=== PATIENT | female | born 1960 | race Caucasian/White ===

== ENCOUNTER → 2018-07-14 | Outpatient (CLI) | payer MEDICARE, MEDICAID | LOC: M LRY 17:15 | DX: J44.1 Chronic obstructive pulmonary disease with (acute) exacerbation (principal) | CPT/HCPCS: 71046; 87804 ==

== ENCOUNTER 2018-11-28 12:36 | Inpatient (IN) | payer MEDICARE, MEDICAID ==
[~2018-11-28] VITALS: Ht 170.2 cm; Wt 65.7 kg
[2018-11-28] MEDS ORDERED: BISO5TAB5 PO ×2 (12:47→16:23)
[2018-11-28] MEDS ORDERED: ATOR40TA75 PO (12:47)
[2018-11-28] MEDS ORDERED: ELIQ5TAB PO (12:47)
[2018-11-28] MEDS ORDERED: VENTAER INH (12:47)
[2018-11-28] MEDS ORDERED: VITA-122 PO (12:47)
[2018-11-28] MEDS ORDERED: VENLAFAXINE PO (12:47)
[2018-11-28] MEDS ORDERED: PRED10TA2 PO (12:47)
[2018-11-28] MEDS ORDERED: METOPROLOL 5 MG/5 ML VIAL IV STA (13:36)
[2018-11-28 14:00] LABS: HEMATOCRIT 48.7 % (36.0-47.0); HEMOGLOBIN 16.2 g/dl (12.0-15.5); MEAN CORPUSCULAR HEMOGLOBIN 30.2 pg (27.0-33.0); MEAN CORPUSCULAR HGB CONC 33.3 g/dl (32.0-36.5); MEAN CORPUSCULAR VOLUME 90.9 fl (80.0-96.0); PLATELET COUNT, AUTOMATED 185 10^3/uL (150-450); RED BLOOD COUNT 5.36 10^6/uL (4.00-5.40); WHITE BLOOD COUNT 6.5 10^3/uL (4.0-10.0)
--- NOTE | 2018-11-28 14:41 | REP ---
AP PORTABLE CHEST: 11/28/2018. Comparison: PA and lateral chest 07/14/2018. Clinical history: Dyspnea. Findings: Frontal view shows the lungs well inflated. There is some basilar fibrotic change and some scarring at the right CP angle as on the previous study. There is no dense consolidation or gross effusion. No parenchymal mass or pulmonary nodule. Curvilinear scarring right midlung zone unchanged. The heart, mediastinal and hilar contours are unchanged. There is pulmonary artery hypertension, consistent with COPD. There is no vascular redistribution or pulmonary edema. The aorta and airway were intact. Bones intact. No free air under the diaphragm. Impression: 1. COPD with some basilar fibrotic changes and some scarring at the right CP angle on this frontal view. No cardiomegaly, edema, effusion, definite infiltrate or parenchymal mass. 2. Pulmonary artery hypertension. 3. Minor degenerative changes in the spine and shoulders. Electronically Signed by Lalo Powell MD 11/28/2018 06:00 P
[2018-11-28] MEDS ORDERED: DIGOXIN INJ 0.5 MG/2 ML AMP (J1160) IV ONE (14:45)
[2018-11-28 14:53] LABS: BLOOD UREA NITROGEN 22 MG/DL (7-18); CALCIUM LEVEL 8.6 MG/DL (8.5-10.1); CARBON DIOXIDE LEVEL 26 MEQ/L (21-32); CHLORIDE LEVEL 101 MEQ/L (98-107); CPK CREATINE PHOSPHOKINASE 141 U/L (26-192); CREATININE FOR GFR 0.89 MG/DL (0.55-1.30); GLOMERULAR FILTRATION RATE > 60.0 (>51); GLUCOSE, FASTING 102 MG/DL (70-100); MB/CK RELATIVE INDEX 1.56 (< OR =4); NT-PRO BNP 435 PG/ML (<125); POTASSIUM SERUM 4.3 MEQ/L (3.5-5.1); SODIUM LEVEL 135 MEQ/L (136-145); THYROID STIMULATING HORMONE 0.868 uIU/ML (0.358-3.740); TROPONIN I < 0.02 NG/ML (< 0.10)
[2018-11-28] MEDS ORDERED: VENL75CA2 PO (16:24)
[2018-11-28] MEDS ORDERED: METOPROLOL 5 MG/5 ML VIAL IV ONE (17:15)
[2018-11-28] MEDS ORDERED: ALBUTEROL 90 MCG/ACT 8GM HFA INHALER INH PRN (18:30)
[2018-11-28 18:44] LABS: PHOSPHORUS LEVEL 3.7 MG/DL (2.5-4.9)
[2018-11-28] MEDS ORDERED: PILL CRUSHER/CUTTER 1 EACH XX PRN (18:45)
--- NOTE | 2018-11-28 18:58 | HPEPDOC ---
General Date of Admission Nov 28, 2018 at 17:53 Other Providers Cardio: Dr. Velasquez in [place] Pulm: Dr. Hadley PCP: Dr. Patel Attending Physician: ROGELIO HURTADO MD Chief Complaint The patient is a 57-year-old female admitted with a reason for visit of Atrial Flutter W/Rvr; Influenza A. History of Present Illness 57-year-old female with history of chronic A. fib and A. flutter presents to the ER after she was seen earlier at urgent care for worsening shortness of breath over the past few days "I feel suffocated". She she has felt fatigue, dry cough, muscle aches, decreased appetite for the past 2-3 days. Positive sick contact with her daughter's son who is positive for flu. Per the patient, she herself tested positive for influenza A at the urgent care, and also found to be in RVR then, with heart rate sustained in the 120s, and recommended to check herself in due to her HR. She denies any phlegm production, no fevers or chills, and states that she is unable to feel palpitations even in the past when she has had rapid heart rate. No dizziness or lightheadedness or cp. She denies any other complaints today. In the ER, she received 1 dose of Lopressor and a loading dose of Digoxin and was thereafter admitted, with HR now in 110s. Home Medications Scheduled Apixaban Base (Eliquis) 5 Mg Tab, 5 MG PO BID, (Reported) Atorvastatin Calcium (Atorvastatin Calcium) 40 Mg Tab, 40 MG PO QHS, (Reported) Bisoprolol Fumarate (Bisoprolol Fumarate) 5 Mg Tab, 5 MG PO QAM, (Reported) Bisoprolol Fumarate (Bisoprolol Fumarate) 5 Mg Tab, 7.5 MG PO QPM, (Reported) Cholecalciferol (Vitamin D3) 1,000 Unit Tab, 1,000 UNITS PO DAILY, (Reported) Prednisone (Prednisone) 10 Mg Tab, 10 MG PO TAPER, (Reported) PATIENT STATES SHE STARTED 1 TAB DAILY FOR 4 DAYS TODAY (11/28/2018) Venlafaxine HCl (Venlafaxine HCl ER) 75 Mg Cap, 225 MG PO DAILY, (Reported) Scheduled PRN Albuterol Sulfate (Ventolin Hfa) 108 Mcg/Act Aer, 1 PUFF INH Q4H PRN for SHORTNESS OF BREATH, (Reported) Allergies Coded Allergies: Penicillins (Verified Allergy, Intermediate, hives, 11/28/18) Past Medical History Medical History Chronic Afib/Flutter, chronically on Eliquis COPD-emphysema Stroke August 2017 Depression Tobacco use Social History Active longtime smoker Review of Systems Other systems Constitutional: Denies fever, chills, night sweats Eyes: Denies eye pain, vision change ENT: Denies headaches, ear pain, dysphagia .Admits rhinorrhea Skin: Denies any rashes or lesions Pulmonary: Admits increasing dyspnea, dry cough, increased wheezing and chest tightness with coughing Cardiac: Denies chest pain, palpitations, orthopnea, PND, edema, lightheadedness GI: Denies nausea, vomiting, abdominal pain, changes in stools Endocrine: Denies heat or cold intolerance MSK: Admits diffuse muscle aches Neurologic: Denies numbness/tingling Physical Examination Other physical findings General exam: Alert and cooperative, A&O 3, NAD Eye exam: PERRLA, EOMI ENT: NCAT, mucous membranes moist, no pharyngeal edema or exudates. Positive postnasal drip Neck: Supple, no adenopathy Cardiac: irregular rate and rhythm, is in Aflutter with HR 110s-120s on monitor Respiratory: diffuse expiratory wheezes and rhonchi. No rales. Equal chest rise b/l Abdomen: normoactive bowel sounds, soft, nontender, nondistended Extremity: 2+ radial and dorsalis pedis pulses, no edema or tenderness Skin: [place], warm, dry, no visible rash or lesions Vital Signs Vital Signs Date Time Temp Pulse Resp B/P (MAP) Pulse Ox O2 Delivery O2 Flow Rate FiO2 11/28/18 18:15 105 20 112/87 (95) 91 Room Air 11/28/18 12:52 97.3 Laboratory Data Labs 24H Laboratory Tests 2 11/28/18 13:41: Nucleated Red Blood Cells % (auto) 0.0, Anion Gap 8, Glomerular Filtration Rate > 60.0, Blood Urea Nitrogen 22H, Creatinine 0.89, Sodium Level 135L, Potassium Level 4.3, Chloride Level 101, Carbon Dioxide Level 26, Calcium Level 8.6, Total Creatine Kinase 141, Creatine Kinase MB 2.0, Creatine Kinase MB Relative Index 1.56, Troponin I < 0.02, LN-Ddt-F-Type Natriuretic Peptide 435H, Thyroid Stimulating Hormone (TSH) 0.868 CBC/BMP Laboratory Tests 11/28/18 13:41 Red Blood Count 5.36, Mean Corpuscular Volume 90.9, Mean Corpuscular Hemoglobin 30.2, Mean Corpuscular Hemoglobin Concent 33.3, Red Cell Distribution Width 13.3, Calcium Level 8.6, Total Creatine Kinase 141 Assessment/Plan A flutter with RVR likely 2/2 acute infection. Patient is asymptomatic. S/P Lopressor and digoxin loading dose in the ER. Currently heart rate is in 110s. If it continues to be elevated, continue with digoxin and limit BBlocker given her borderline soft BP. Continue home regular Zebeta, 5mg qam and 7.5mg qpm once tolerable. Home regimen may need adjustment. Patient is chronically anticoagulated on Eliquis. Influenza A Tested positive in urgent care earlier today prior to admission. Positive sick contact with the child also positive for flu. Start on Tamiflu. Consider starting DuoNeb treatments once her heart rate is better controlled. COPD-emphysema Continue home inhalers. This does not appear to be a COPD exacerbation as she has wheezes at baseline and is not hypoxic currently. If she does not improve over time, consider starting steroids. Of note, she was recently started on prednisone taper earlier today, and has only taken [address] this on hold currently and treat her active influenza infection. Hx of CVA August 2017. Stable, continue Lipitor Depression Stable. Continue home venlafaxine Active tobacco use Patient counseled on tobacco cessation. Will start on nicotine patch DVT PPX: Chronically on Eliquis Distal: Will admit to the hospital service, closely monitor on telemetry. Plan / VTE VTE Prophylaxis Ordered?: Yes GME ATTESTATION GME ATTESTATION My faculty preceptor for this patient encounter was physically present during the encounter and was fully available. All aspects of the patient interview, examination, medical decision making process, and medical care plan development were reviewed and approved by the faculty preceptor. The faculty preceptor is aware and concurs with the plan as stated in the body of this note and will attest to such by his/her cosignature. ELICEO GONZALES DO Nov 28, 2018 18:58
[2018-11-28] MEDS ORDERED: NICOTINE 21MG/24HR 1 EA TRANSDERMAL TD ONE (19:00)
[2018-11-28] MEDS: ATORVASTATIN 20 MG TAB PO SCH (20:25)
[2018-11-28] MEDS: OSELTAMIVIR PHOSPHATE 75 MG CAP (TAMIFLU) PO SCH (20:25)
[2018-11-28] MEDS: BISOPROLOL FUMARATE 5 MG TAB PO SCH (20:25)
[2018-11-28] MEDS: APIXABAN 5 MG TAB (ELIQUIS) PO SCH (20:25)
--- NOTE | 2018-11-28 21:01 | ECGEPIP ---
Stationary ECG Study [facility] - ED Test Date: 2018-11-28 Pat Name: CRIS MORSE Department: Room: - Gender: F Customer Services Manager: dai : [id number] Requested By: NAN Ramos PA-C Order Number: [id number] Reading MD: Kayla Conley Measurements Intervals [place] Rate: 112 P: [place]: 0 QRS: -12 QRSD: 78 T: -34 QT: 321 QTc: 440 Interpretive Statements ATRIAL FIBRILLATION WITH RAPID VENTRICULAR RESPONSE POSSIBLE RIGHT VENTRICULAR CONDUCTION DELAY NONSPECIFIC T-WAVE ABNORMALITY ABNORMAL RHYTHM ECG NO PRIOR FOR COMPARISON Electronically Signed On 11-28-2018 21:01:16 EST by Kayla Conley
[2018-11-28 23:59] VITALS: BP 123/87
[2018-11-29 01:10] VITALS: BP 123/87
[2018-11-29 04:00] VITALS: BP 123/82
[2018-11-29 05:46] LABS: HEMATOCRIT 51.5 % (36.0-47.0); HEMOGLOBIN 16.6 g/dl (12.0-15.5); MEAN CORPUSCULAR HGB CONC 32.2 g/dl (32.0-36.5); PLATELET COUNT, AUTOMATED 198 10^3/uL (150-450); RED BLOOD COUNT 5.54 10^6/uL (4.00-5.40)
[2018-11-29 05:58] LABS: BLOOD UREA NITROGEN 20 MG/DL (7-18); CALCIUM LEVEL 8.3 MG/DL (8.5-10.1); CARBON DIOXIDE LEVEL 31 MEQ/L (21-32); CHLORIDE LEVEL 100 MEQ/L (98-107); GLOMERULAR FILTRATION RATE > 60.0 (>51); GLUCOSE, FASTING 82 MG/DL (70-100); MAGNESIUM LEVEL 2.1 MG/DL (1.8-2.4); SODIUM LEVEL 135 MEQ/L (136-145)
[2018-11-29 08:00] VITALS: BP 119/17
[2018-11-29] MEDS: VENLAFAXINE **XR** 75MG CAPSULE PO SCH (10:03)
[2018-11-29] MEDS: VITAMIN D 1,000 INTERNATIONAL UNITS TABLET PO SCH (10:03)
[2018-11-29] MEDS: OSELTAMIVIR PHOSPHATE 75 MG CAP (TAMIFLU) PO SCH ×2 (10:04→22:05)
[2018-11-29] MEDS: APIXABAN 5 MG TAB (ELIQUIS) PO SCH ×2 (10:04→22:05)
[2018-11-29] MEDS: BISOPROLOL FUMARATE 5 MG TAB PO SCH ×2 (10:05→22:04)
[2018-11-29 12:00] VITALS: BP 129/91
[2018-11-29] MEDS: IPRATROPIUM 0.5MG/ALBUTEROL 2.5MG INH SOL UD 3ML (DUONEB)(J7620) NEB SCH ×4 (13:50→23:47)
--- NOTE | 2018-11-29 14:28 | IPN ---
DATE: 11/29/2018 SUBJECTIVE: The patient tells me that she is breathing easier today. She still has a cough. She tells me that she is not feeling as weak, but does feel weak from her baseline. She denies fevers or chills. OBJECTIVE: VITAL SIGNS: Temperature 98.5, maximum temperature (t-max) 99.4, pulse 85, respiratory rate 18, blood pressure 119/70, oxygen saturation 95% on 2 liters nasal cannula. GENERAL: She is a middle aged female sitting up in bed. She does not appear to be in any acute distress. She is speaking in complete sentences. Awake, alert, oriented times three. No use of accessory muscles. No elevation in jugular venous pressure. CARDIOVASCULAR: S1, S2 irregularly irregular but not tachycardic. RESPIRATORY: She has a prolonged expiratory phase with some mild diffuse expiratory wheeze. ABDOMINAL EXAM: Benign. EXTREMITIES: No clubbing, cyanosis or edema. LABORATORY STUDIES: WBC 5.0, hemoglobin 16.6, platelet count 198. Chemistry panel shows sodium 135, potassium 4.0, chloride 100, bicarbonate 31, BUN 20, creatinine 1.0. TSH within normal limits. IMAGING: The patient did have a chest x-ray that revealed pulmonary artery hypertension, chronic obstructive pulmonary disease (COPD) with some basilar fibrotic changes and some scarring at the right costophrenic angle. Mild degenerative changes in the spine and shoulders. ASSESSMENT AND PLAN: This is a 57-year-old female with hypoxic respiratory failure secondary to influenza A. 1. Influenza A. The patient has been started on Tamiflu. She has received at this time two doses. She is improving. She does have some polycythemia, which I suspect she has chronic hypoxic respiratory failure and we are discovering it during this visit. I suspect that she will need to be sent with home oxygen. I will check an ambulating oxygen saturation and see how she progresses over the next 24 to 48 hours. My suspicion is that she will be discharged home with oxygen. For the time being, I will continue supportive measures. I will start her on DuoNebs and consider beginning Spiriva. I feel she has a long-standing COPD related to active tobacco use. 2. COPD/emphysema. As outlined above, I think that she is improving at this time and as such I will hold off on any IV steroids. If she fails to improve, this could certainly be considered. It does not appear as though she is on significant medication at home, but given her elevated hemoglobin and hematocrit and imaging findings and tobacco history, I suspect this will benefit from further medication and spirometry with outpatient home referral. 3. History of CVA, stable. She is continued on Lipitor, as well as Eliquis. 4. Atrial fibrillation. She did present with rapid ventricular response likely secondary to her shortness of breath. It does appear to have responded well to measures to improve her breathing status. She is on her home Zebeta, rate controlling agents and her anticoagulation with Eliquis. 5. Mood disorder. Continue with Effexor. 6. Tobacco abuse. Cessation counseling provided. She is not very receptive to it at this time. DISPOSITION: Possibly home within the next 24 to 48 hours pending her respiratory status.
[2018-11-29 16:00] VITALS: BP 122/70
[2018-11-29 20:00] VITALS: BP 102/76
[2018-11-29] MEDS: ATORVASTATIN 20 MG TAB PO SCH (22:05)
[2018-11-30] VITALS: BP 104/74
[2018-11-30 04:00] VITALS: BP 107/73
[2018-11-30 05:10] LABS: HEMATOCRIT 47.8 % (36.0-47.0); HEMOGLOBIN 15.6 g/dl (12.0-15.5); MEAN CORPUSCULAR HEMOGLOBIN 29.6 pg (27.0-33.0); MEAN CORPUSCULAR HGB CONC 32.6 g/dl (32.0-36.5); MEAN CORPUSCULAR VOLUME 90.7 fl (80.0-96.0); PLATELET COUNT, AUTOMATED 162 10^3/uL (150-450); RED BLOOD COUNT 5.27 10^6/uL (4.00-5.40); WHITE BLOOD COUNT 3.7 10^3/uL (4.0-10.0)
[2018-11-30 05:35] LABS: BLOOD UREA NITROGEN 21 MG/DL (7-18); CALCIUM LEVEL 8.1 MG/DL (8.5-10.1); CARBON DIOXIDE LEVEL 29 MEQ/L (21-32); CHLORIDE LEVEL 103 MEQ/L (98-107); CREATININE FOR GFR 0.78 MG/DL (0.55-1.30); GLOMERULAR FILTRATION RATE > 60.0 (>51); GLUCOSE, FASTING 86 MG/DL (70-100); MAGNESIUM LEVEL 2.1 MG/DL (1.8-2.4); SODIUM LEVEL 137 MEQ/L (136-145)
[2018-11-30] MEDS: IPRATROPIUM 0.5MG/ALBUTEROL 2.5MG INH SOL UD 3ML (DUONEB)(J7620) NEB SCH (06:03)
[2018-11-30 08:00] VITALS: BP 121/82
[2018-11-30] MEDS: VITAMIN D 1,000 INTERNATIONAL UNITS TABLET PO SCH (09:19)
[2018-11-30] MEDS: APIXABAN 5 MG TAB (ELIQUIS) PO SCH (09:19)
[2018-11-30] MEDS: OSELTAMIVIR PHOSPHATE 75 MG CAP (TAMIFLU) PO SCH (09:19)
[2018-11-30] MEDS: VENLAFAXINE **XR** 75MG CAPSULE PO SCH (09:19)
[2018-11-30 09:20] VITALS: BP 121/82
[2018-11-30] MEDS: BISOPROLOL FUMARATE 5 MG TAB PO SCH (09:20)
[2018-11-30] MEDS ORDERED: SLF 3 ML SYR IV PRN (10:45)
[2018-11-30] MEDS ORDERED: SPIR1CAP INH (11:08)
[2018-11-30] MEDS ORDERED: BREO1INH PO (11:08)
[2018-11-30] MEDS ORDERED: OSEL75CA2 PO (11:08)
[2018-11-30] MEDS ORDERED: SLF 3 ML SYR IV SCH (14:00)
--- NOTE | 2018-11-30 17:56 | DSES ---
DATE OF ADMISSION: 11/28/2018 DATE OF DISCHARGE: 11/30/2018 DISCHARGE DIAGNOSIS: Influenza A. SECONDARY DIAGNOSES: 1. Chronic obstructive pulmonary disease. 2. Emphysema. 3. History of a cerebrovascular accident. 4. Atrial fibrillation. 5. Mood disorder. 6. Tobacco abuse. HOSPITAL COURSE: The patient is a 57-year-old female who presented with hypoxic respiratory failure, shortness of breath, as well as atrial fibrillation with rapid ventricular response. She was found to have influenza A. She was started on Tamiflu. She was on nebulizer treatments as well. She did improve rather quickly, to the point that she no longer required any oxygen. She was up ambulating independently. Her symptoms did improve. Physically, her weakness did resolve. At this time she tells me she is feeling better, close to her baseline, and would like to go home. OBJECTIVE: VITAL SIGNS: Temperature 97.9, pulse 90, respiratory rate 18, blood pressure (BP) 121/82, oxygen saturation 94% on room air. GENERAL: She is a middle-aged female lying in bed. She is speaking in complete sentences, awake, alert, oriented times three. No accessory muscle use. She is in no distress. HEENT: Cranial nerves II-XII are grossly intact. She has moist mucous membranes. No elevation in central venous pressure (CVP). CARDIOVASCULAR: S1, S2, regular. She is not irregularly irregular. She is not tachycardic at the time of my exam. RESPIRATORY: Actually clear throughout with mildly prolonged expiratory phase. ABDOMEN: Scaphoid. EXTREMITIES: No clubbing, cyanosis, or edema. LABORATORY STUDIES: WBC 3.7, hemoglobin 15.6, platelet count 162. Chemistry panel: Sodium 137, potassium 4.0, chloride 103, bicarbonate 29, BUN 21, creatinine 0.7. She did have a chest x-ray at the time of her admission that revealed pulmonary artery hypertension. Mild degenerative changes in the spine and shoulders. Chronic obstructive pulmonary disease (COPD) with some basilar fibrotic changes. Some scarring at the right costophrenic angle. No acute infiltrate. ASSESSMENT AND PLAN: This is a 57-year-old female with hypoxic respiratory failure, shortness of breath secondary to influenza A superimposed on longstanding COPD. 1. Influenza A. She has been started on Tamiflu. She will be discharged to complete a course of this. She is improved at this time. She was on nebulizer treatments as well. I suspect that influenza A hit her quite hard given that she has an underlying history of COPD. She is improving at this time with supportive measures. I did inform her that it could take almost a week for her to improve completely. At this time she is medially stable for discharge home, no longer requiring any oxygen or any intravenous medications. 2. COPD, emphysema. She is on albuterol at home normally; however, I suspect that she would benefit from the addition of Breo Ellipta and Spiriva, which I will add to her COPD regimen. She does have some polycythemia, which may suspect that she has some degree of chronic hypoxic respiratory failure, possibly with some sleep apnea. I did recommend she followup with her fire lookout in [place] as soon as possible. She is visiting her daughter here in [place]. She has a mini shifter and primary care provider in [place] as well. During her stay here, she did not require any steroids. 3. History of cerebrovascular accident (CVA). She is continued on Lipitor as well as Eliquis. 4. Atrial fibrillation. She had a rapid ventricular response at the time of her presentation, likely secondary to her shortness of breath with improvement in her respiratory status. Her rate was controlled. She is continued on her Zebeta for rate control as well as Eliquis for anticoagulation. 5. Mood disorder. She was continued on Effexor. 6. Tobacco abuse. Cessation counseling provided at extensive length. She is mildly receptive to this at this point. I did speak with the patient's daughter regarding this as well. All questions were answered to their satisfaction, both the patient and the daughter. DISPOSITION: She is being discharged home to the care of her daughter. She is to followup with her primary care physician (PCP) and fire lookout as soon as possible. Her activity is as tolerated. Her diet is as tolerated. She is to return to the ER if her symptoms worsen. DISCHARGE MEDICATIONS: - Breo Ellipta 100/25 daily for 30 days - Tamiflu 75 mg twice a day for 5 more days - Spiriva HandiHaler 18 mcg inhaled daily - Ventolin HFA one puff every 4hours as needed for shortness of breath - Eliquis 5 mg twice a day - atorvastatin 40 mg at bedtime - bisoprolol 5 mg every morning and 7.5 mg in the evening - vitamin D3 at 1000 units daily - venlafaxine 225 mg daily Greater than 30 minutes spent organizing disposition.
== END 2018-11-30 13:40 | disposition home or self-care (01) | DRG 194 ==
LOC: M ED 12:36 → M ED INP 17:53 → M PCU 11-29 00:54
PROVIDERS: ADMIT Internal Medicine; ATTEND Internal Medicine
DX: J10.1 Influenza due to other identified influenza virus with other respiratory manifestations (principal); I48.92 Unspecified atrial flutter; J96.11 Chronic respiratory failure with hypoxia; J43.9 Emphysema, unspecified; I48.91 Unspecified atrial fibrillation; Z86.73 Personal history of transient ischemic attack (TIA), and cerebral infarction without residual deficits; F39 Unspecified mood [affective] disorder; F17.200 Nicotine dependence, unspecified, uncomplicated; D75.1 Secondary polycythemia; Z79.899 Other long term (current) drug therapy; Z79.52 Long term (current) use of systemic steroids; Z88.0 Allergy status to penicillin; Z79.01 Long term (current) use of anticoagulants